=== PATIENT | female | born 1970 | race Caucasian/White ===

== ENCOUNTER → 2016-11-12 | Outpatient (CLI) | payer BC ==
[~2016-11-12] MED LIST: IBUP-1050 PO; OXYC-57 PO; PANT40TA PO; PRED50TA PO; PRLSR20 PO; RANI300T2 PO; ZNTT/150 PO
[2016-11-12 17:46] LABS: BASO % 0.6 %; BASO ABS # 0.05 K/uL (0-0.2); COMPLETE YES; EOS % 1.8 %; HEMATOCRIT 43.7 % (37-47); IG% 0.2 %; LYMPH % 33.8 %; LYMPH ABS # 2.92 K/uL (1.2-3.4); MEAN CELL VOLUME 96.9 fL (80-100); MEAN CORPUSCULAR HEMOGLOBIN 32.6 pg (25-34); MEAN CORPUSCULAR HGB CONC 33.6 g/dl (32-36); MEAN PLATELET VOLUME 10.2 fL (7.4-10.4); MONO % 7.3 %; NEUT % 56.3 %; PLATELET COUNT 323 K/uL (130-400); RED BLOOD COUNT 4.51 M/uL (4.2-5.4); WHITE BLOOD COUNT 8.65 K/uL (4.8-10.8)
[2016-11-12 17:59] LABS: ALT/SGPT 31 U/L (12-78); BLOOD UREA NITROGEN 7 mg/dl (7-18); BUN/CREATININE RATIO 9.1 (10-20); CALCIUM 9.1 mg/dl (8.5-10.1); CARBON DIOXIDE 29 mmol/L (21-32); CHLORIDE 103 mmol/L (98-107); CREATININE 0.77 mg/dl (0.60-1.20); GLUCOSE 88 mg/dl (70-99); POTASSIUM 3.9 mmol/L (3.5-5.1); SODIUM 139 mmol/L (136-145)
[2016-11-12 18:02] LABS: ALB/GLOB RATIO 0.8 (0.9-2); ALKALINE PHOSPHATASE 79 U/L (45-117); AST/SGOT 18 U/L (15-37)
== END | disposition home or self-care (01) ==
LOC: C.LAB1850 16:40
PROVIDERS: ATTEND Family Medicine
DX: R10.9 Unspecified abdominal pain (principal)

== ENCOUNTER → 2016-11-13 | Outpatient (CLI) | payer BC ==
--- NOTE | 2016-11-13 08:41 | DIAGNOSTIC IMAGING REPORT ---
ABDOMINAL ULTRASOUND COMPLETE HISTORY: Pain. Nausea. R10.9. COMPARISON: None. FINDINGS: Pancreas: The pancreas demonstrates a normal echotexture. Liver: Fatty infiltration Gallbladder: Surgically removed CBD: 5 mm Kidneys: No hydronephrosis. Spleen: Normal in size. Aorta: Normal in caliber. IVC: Patent. IMPRESSION: 1. Mild fatty infiltration of liver. 2. Otherwise negative study status post cholecystectomy Electronically signed by: Marcelino Pickard M.D. 11/13/2016 8:40 AM Dictated Date/Time: 11/13/2016 8:39 AM
== END | disposition home or self-care (01) ==
LOC: C.ULTR 07:09
PROVIDERS: ATTEND Family Medicine
DX: R10.9 Unspecified abdominal pain (principal)

== ENCOUNTER 2017-04-20 15:38 | Emergency (ER) | payer BC ==
[~2017-04-20] VITALS: Ht 165.1 cm; Wt 101.6 kg
[~2017-04-20 15:38] MED LIST changes: -IBUP-1050 PO; -OXYC-57 PO; -PANT40TA PO; -PRED50TA PO; -RANI300T2 PO
[2017-04-20 15:41] VITALS: TEMP 36.7; Ht 165.1 cm; Wt 101.6 kg
[2017-04-20] MEDS ORDERED: PANT40TA PO (15:59)
[2017-04-20] MEDS ORDERED: IBUP-1050 PO (15:59)
[2017-04-20] MEDS ORDERED: PRED50TA PO (15:59)
[2017-04-20] MEDS ORDERED: RANI300T2 PO (15:59)
[2017-04-20] MEDS ORDERED: OXYCODONE/ACETAMINOPHEN 5-325 TAB PO ONE (16:00)
--- NOTE | 2017-04-20 16:01 | EMERGENCY ROOM VISIT NOTE ---
ED Visit Note First contact with patient: 15:48 CHIEF COMPLAINT: Shoulder pain HISTORY OF PRESENT ILLNESS: This 46-year-old female patient presents to the emergency department ambulatory complaining of pain in the right shoulder for the last 4 days. The patient states she was lifting her grandson above her head and felt a pop and pain in the right anterior shoulder. There is moderate limitation of motion of the arm because of the pain. The patient did not hear a cracking the sound at the time of the injury. There is no weakness of the arm. The pain is moderate, constant and increases with motion of the hand and arm. The patient states the pain is severe, getting worse and 8/10. The patient has taken ibuprofen and prednisone with no relief of the pain. No previous significant shoulder disease or injury. No numbness or tingling. Patient denies neck or back pain. No chest pain or shortness of breath. No abdominal pain or nausea/vomiting. No cough. She was seen at the walk-in clinic and given ibuprofen and prednisone. She has not had any imaging at this point. REVIEW OF SYSTEMS: A 6 system review of systems was performed with positives and pertinent negatives in the HPI. ALLERGIES: No known drug allergies MEDICATIONS: Zantac, Prilosec PMH: GERD SOCIAL HISTORY: The patient lives locally with family. She does not smoke PHYSICAL EXAM: Vital Signs: Reviewed nurse's notes, vital signs stable. GENERAL : This is a 46-year-old female, in no acute distress, but appears to be in pain , well-developed, well-nourished. MUSCULOSKELETAL: There is no deformity in the contour of the right shoulder and there are no enzo deformities noted. There is negative sulcus sign. There is tenderness over the anterior shoulder particularly at the insertion of the biceps tendon. The patient's range of motion is decreased secondary to pain. Supraspinatus strength 4/5. NEURO: The patient is alert and oriented to person, place, and time. Normal sensation to light and sharp touch. Capillary refill less than 2 seconds. Radial and brachial pulse 2+. EMERGENCY DEPARTMENT COURSE: I examined the patient. An X-ray of the right shoulder was reviewed by myself and radiology and shows degenerative changes. The patient was given 1 Percocet with good improvement in her pain. The patient already has a sling. She should follow-up with orthopedics and/or her family doctor next week for recheck, further evaluation and management. She should return to the ER with any worsening symptoms. I reviewed the prescription drug monitoring website. The patient has not had recent narcotic prescriptions filled. Medication Reconciliation: I attest that I have personally reviewed the patient' s current medication list. Blood pressure screening: The patient was found to have normal blood pressure on screening and does not require follow-up RIGHT SHOULDER MIN 2 VIEWS ROUTINE CLINICAL HISTORY: 46 years-old Female presenting with right shoulder pain, Lifted grandson (30 pounds) and injured shoulder 4 days ago, pain since then. TECHNIQUE: Internal rotation, external rotation, and Grashey views of the right shoulder were obtained. COMPARISON: None. FINDINGS: Degenerative changes of the glenohumeral joint with subchondral sclerosis and cystic change in the osseous glenoid. Humeral head normal-appearing. No acute fracture or subluxation. Acromioclavicular joint intact. Visualized portion of the right hemithorax normal. IMPRESSION: Degenerative changes of the glenohumeral joint. No acute osseous injury. Current/Historical Medications Scheduled Pantoprazole (Protonix), 40 MG PO DAILY Prednisone (Prednisone), 50 MG PO DAILY Ranitidine (Zantac), 300 MG PO DAILY Scheduled PRN Ibuprofen (Advil), 200 MG PO UD PRN for Pain Oxycodone/Acetaminophen 5MG/325MG (Percocet 5MG/325MG), 1-2 TABS PO Q6 PRN for Pain Allergies Coded Allergies: No Known Allergies (Verified , *, 07/17/10) Vital Signs Date Time Temp Pulse Resp B/P (MAP) Pulse Ox O2 Delivery O2 Flow Rate FiO2 04/20/17 17:10 93 18 117/73 97 04/20/17 15:41 36.7 99 18 117/66 96 Room Air Medications Administered Medications (Trade) Dose Ordered Sig/Yohannes Route Start Time Stop Time Status Last Admin Dose Admin Oxycodone/ Acetaminophen (Percocet 5-325mg Tab) 1 tab NOW ONCE PO 04/20/17 16:00 04/20/17 16:01 DC 04/20/17 16:38 1 TAB Departure Information Impression Primary Impression: Shoulder pain Dispostion Home / Self-Care Condition GOOD Prescriptions Oxycodone/Acetaminophen 5MG/325MG (PERCOCET 5MG/325MG) Tab 1-2 TABS PO Q6 Y for Pain, #24 TAB For Initial Treatment Prov: Stacey Snowden PA-C 04/20/17 Referrals Juan Jose Brewer M.D. (PCP) Prasanth Brush M.D. Patient Instructions ED Shoulder Pain [facility], [facility] Additional Instructions Continue the ibuprofen and prednisone as prescribed Percocet 1-2 tablet every 4-6 hours as needed for worse pain. No driving or alcohol use with Percocet and do not take with Tylenol. Contact your family doctor and/or orthopedics Saturday to schedule a follow-up appointment for further evaluation and management Continue the sling Return with any worsening symptoms Problem Qualifiers Primary Impression: Shoulder pain Chronicity: acute Laterality: right Qualified Codes: M25.511 - Pain in right shoulder
--- NOTE | 2017-04-20 16:44 | DIAGNOSTIC IMAGING REPORT ---
RIGHT SHOULDER MIN 2 VIEWS ROUTINE CLINICAL HISTORY: 46 years-old Female presenting with right shoulder pain, Lifted grandson (30 pounds) and injured shoulder 4 days ago, pain since then. TECHNIQUE: Internal rotation, external rotation, and Grashey views of the right shoulder were obtained. COMPARISON: None. FINDINGS: Degenerative changes of the glenohumeral joint with subchondral sclerosis and cystic change in the osseous glenoid. Humeral head normal-appearing. No acute fracture or subluxation. Acromioclavicular joint intact. Visualized portion of the right hemithorax normal. IMPRESSION: Degenerative changes of the glenohumeral joint. No acute osseous injury. Electronically signed by: Prasanth Jose M.D. 04/20/2017 4:42 PM Dictated Date/Time: 04/20/2017 4:41 PM
[2017-04-20] MEDS ORDERED: OXYC-57 PO (16:53)
[2017-04-20 17:10] VITALS: BP 117/73; PULSE 93; O2SAT 97
== END 2017-04-20 17:12 | disposition home or self-care (01) ==
LOC: C.EDB 15:39 → C.EDD 17:12
DX: M25.511 Pain in right shoulder (principal); M19.011 Primary osteoarthritis, right shoulder; K21.9 Gastro-esophageal reflux disease without esophagitis